=== PATIENT | female | born 1960 | race Caucasian/White ===

== ENCOUNTER → 2016-07-07 | Outpatient (CLI) | payer BC, OTHER ==
[2016-07-08 16:45] LABS: PARASITIC EXAM FIN 1547 (())
== END ==
LOC: LAB 11:36
PROVIDERS: ATTEND Internal Medicine Gastroenterology
DX: R19.7 Diarrhea, unspecified (principal)
CPT/HCPCS: 87046; 87177; 87209; 87328; 87329; 87493